=== PATIENT | female | born 1980 | race Caucasian/White ===

== ENCOUNTER 2020-05-19 17:39 | Emergency (ER) | payer MEDICAID ==
[~2020-05-19] VITALS: Ht 165.1 cm; Wt 68.0 kg
[2020-05-19 18:45] LABS: CLARITY URINE TURBID (CLEAR); COLOR URINE YELLOW (YELLOW); KETONES URINE NEGATIVE (NEGATIVE); LEUKOCYTE ESTERASE URINE 3+ (NEGATIVE); NITRITE URINE NEGATIVE (NEGATIVE); OCCULT BLOOD URINE NEGATIVE (NEGATIVE); PH URINE 8.5 (4.5-8.0); PROTEIN URINE 1+ (NEGATIVE); SPECIFIC GRAVITY URINE 1.017 (1.005-1.030)
[2020-05-19 18:48] LABS: BASOPHILS % 0.4 % (0.0-2.0); EOSINOPHILS % 8.2 % (0.0-5.0); HEMATOCRIT. 22.9 % (36.0-48.0); HEMOGLOBIN. 7.2 g/dL (12.0-16.0); LYMPHOCYTES % 20.1 % (20.0-50.0); MEAN CORPUSCULAR HEMOGLOBIN 21.6 pg (28.0-32.0); MEAN CORPUSCULAR VOLUME 68.7 fL (81.0-99.0); MEAN PLATELET VOLUME 6.8 fl (7.4-10.4); NEUTROPHILS % 65.3 % (40.0-76.0); PLATELET 329 x1000/uL (130-400); RED BLOOD CELL COUNT 3.33 mill/uL (4.2-5.4); RED CELL DISTRIBUTION WIDTH 19.5 % (11.6-14.6)
[2020-05-19 18:51] LABS: CHLORIDE 110 mEq/L (98-107)
[2020-05-19 19:23] LABS: PLATELET ESTIMATE NORMAL
[2020-05-19] MEDS ORDERED: DOXYCYCLINE HYCLATE 100MG CAPSULE PO ONE (21:00)
[2020-05-19] MEDS ORDERED: CEFTRIAXONE SODIUM 250 MG/VIAL IM ONE (21:00)
[2020-05-19] MEDS ORDERED: METRONIDAZOLE 500MG TABLET PO ONE (21:30)
[2020-05-19 22:04] VITALS: BP 100/55
[2020-05-21 06:10] LABS: HIV SCREEN 4G Non Reactive (Non Reactive)
[2020-05-23 04:06] LABS: NEISSERIA GONORRHOEAE NAA Negative (Negative)
== END 2020-05-19 22:05 | disposition home or self-care (01) ==
LOC: ER 17:39
DX: N73.9 Female pelvic inflammatory disease, unspecified (principal); N76.0 Acute vaginitis
CPT/HCPCS: 36415; 76830; 76856; 80053; 81003; 85025; 86592; 87210; 87255; 87389; 87491; 87591; 96372; 99284; J0696